=== PATIENT | male | born 1980 | race Caucasian/White ===

== ENCOUNTER 2019-11-03 18:53 | Emergency (ER) | payer OTHER ==
[~2019-11-03] VITALS: Ht 185.4 cm; Wt 158.8 kg
[~2019-11-03 18:53] MED LIST: CITRATE OF MAG296 ML PO; NOHOMEMEDICATIONS; NORCO 5-325 TA1 EACH PO; PERCOCET 5-3251 EACH PO; TRAMADOL 50 MG50 MG PO; VISTARIL 25 MG25 M1 PO
[2019-11-03] MEDS ORDERED: KAPSPARGO SPRIN25 MG PO (19:00)
[2019-11-03] MEDS ORDERED: GLYBURIDE 5 MG T5 M1 PO (19:00)
[2019-11-03] MEDS ORDERED: OXYCODONE HCL E10 MG PO (19:01)
[2019-11-03] MEDS ORDERED: DEPRESSION (19:02)
[2019-11-03 19:20] LABS: ABSOLUTE BASOPHILS 0.1 thou/uL (0.0-0.2); ABSOLUTE EOSINOPHILS 0.3 thou/uL (0.0-0.7); ABSOLUTE LYMPHOCYTES 3.3 thou/uL (0.8-5.3); ABSOLUTE MONOCYTES 0.7 thou/uL (0.0-1.2); ABSOLUTE NEUTROPHILS 6.7 thou/uL (1.6-8.1); EOSINOPHILS 2.5 %; HEMATOCRIT 40.8 % (42.0-52.0); HEMOGLOBIN 13.7 gm/dL (14.0-18.0); LYMPHOCYTES 29.8 %; MCH 29.1 pg (26.0-34.0); MCHC 33.7 g/dL (28.0-37.0); MCV 86.6 fL (80.0-100.0); MONOCYTES 6.3 %; MPV 9.2 fl. (7.2-11.1); NUCLEATED RBCS 0 /100WBC; PLATELET COUNT* 265 thou/uL (150-400); POLYS 60.4 %; RBC 4.71 mil/uL (4.50-6.00); RDW-CV 14.3 % (10.5-14.5)
[2019-11-03 19:28] LABS: CALCIUM 8.5 mg/dL (8.5-10.1); CREATININE 0.9 mg/dL (0.6-1.3); POTASSIUM 4.1 mmol/L (3.5-5.1)
[2019-11-03 19:31] LABS: APTT 25.4 Seconds (25.0-31.3); PROTIME 9.9 Seconds (9.20-11.50)
[2019-11-03 19:40] LABS: ALBUMIN 3.3 g/dL (3.4-5.0); CK-MB MASS 0.5 ng/mL (<0.5-3.6); MAGNESIUM 1.6 mg/dL (1.8-2.4); TOTAL BILIRUBIN 0.2 mg/dL (<0.1-1.0); TOTAL PROTEIN 7.5 g/dL (6.4-8.2)
[2019-11-03 23:05] VITALS: BP 126/76
--- NOTE | 2019-11-04 10:52 | EKG ---
[place] [address] ELECTROCARDIOGRAM REPORT Name: LUAN NANCE Room: [facility]#: [id number] Admission: 11/03/19 Attend Phys: Discharge: 11/03/19 Date of : 78 Date of Service: 11/03/191848 Report #: [id number] THIS REPORT FOR: //name// [facility] ED Test Date: 2019-11-03 Test Time: 18:49:53 Pat Name: LUAN NANCE Department: Room: Gender: E Commerce Director: : 1980 Requested By: Marek Norris Order Number: [id number] MD: Juan Jose Wu Measurements Intervals [place] Rate: 68 P: 42 AR: 188 QRS: -17 QRSD: 96 T: 66 QT: 382 QTc: 407 Interpretive Statements Sinus rhythm Borderline left axis deviation Compared to ECG 10/02/2012 17:44:41 Sinus bradycardia no longer present Ventricular premature complex(es) no longer present Electronically Signed On 11-04-2019 10:50:39 CDT by Juan Jose Wu [email or web address] <ELECTRONICALLY SIGNED> By: Juan Jose Wu MD, FAC 11/04/19 1050 1849 1849 Juan Jose Wu MD, [facility] /EPI
== END 2019-11-03 23:07 | disposition home or self-care (01) ==
LOC: M.ERS 18:53
PROVIDERS: Family Medicine
DX: R07.89 Other chest pain (principal); E11.9 Type 2 diabetes mellitus without complications; F31.9 Bipolar disorder, unspecified; Z91.041 Radiographic dye allergy status; Z88.6 Allergy status to analgesic agent; Z88.8 Allergy status to other drugs, medicaments and biological substances

== ENCOUNTER 2019-12-09 06:04 | Observation (INO) | payer OTHER ==
[~2019-12-09] VITALS: Ht 185.4 cm; Wt 177.7 kg
[~2019-12-09 06:04] MED LIST changes: +DEPRESSION; +GLYBURIDE 5 MG T5 M1 PO; +KAPSPARGO SPRIN25 MG PO; +OXYCODONE HCL E10 MG PO
[2019-12-09 06:08] VITALS: BP 172/66
[2019-12-09] MEDS ORDERED: DESYREL150 MG PO (06:14)
[2019-12-09] MEDS ORDERED: WELLBUTRIN 100100 MG (06:15)
[2019-12-09] MEDS ORDERED: LEVEMIR FL100 UNIT/2 SUBQ (06:16)
[2019-12-09 06:52] LABS: ABSOLUTE BASOPHILS 0.1 thou/uL (0.0-0.2); ABSOLUTE EOSINOPHILS 0.2 thou/uL (0.0-0.7); ABSOLUTE LYMPHOCYTES 2.2 thou/uL (0.8-5.3); ABSOLUTE MONOCYTES 0.4 thou/uL (0.0-1.2); ABSOLUTE NEUTROPHILS 5.7 thou/uL (1.6-8.1); BASOPHILS 0.8 %; HEMATOCRIT 35.9 % (42.0-52.0); MCH 29.3 pg (26.0-34.0); MCHC 33.5 g/dL (28.0-37.0); MCV 87.5 fL (80.0-100.0); MONOCYTES 4.6 %; MPV 8.5 fl. (7.2-11.1); NUCLEATED RBCS 0 /100WBC; PLATELET COUNT* 225 thou/uL (150-400); POLYS 66.6 %; RDW-CV 14.8 % (10.5-14.5); WBC 8.5 thou/uL (4.0-11.0)
[2019-12-09 07:08] LABS: CALCIUM 8.1 mg/dL (8.5-10.1); CREATININE 0.8 mg/dL (0.6-1.3); POTASSIUM 4.2 mmol/L (3.5-5.1)
[2019-12-09 07:18] LABS: MAGNESIUM 1.7 mg/dL (1.8-2.4); TOTAL BILIRUBIN 0.2 mg/dL (<0.1-1.0); TOTAL PROTEIN 7.1 g/dL (6.4-8.2)
[2019-12-09 07:45] LABS: URINE BILIRUBIN NEGATIVE (Negative); URINE BLOOD TRACE (Negative); URINE CLARITY CLEAR; URINE COLOR YELLOW; URINE GLUCOSE-RANDOM 1+ (Negative); URINE KETONES NEGATIVE (Negative); URINE LEUKOCYTES-REFLEX NEGATIVE (Negative); URINE NITRITE-REFLEX NEGATIVE (Negative); URINE PROTEIN NEGATIVE (Negative); URINE SPECIFIC GRAVITY 1.025 (1.005-1.030); URINE UROBILINOGEN 0.2 E.U./dl (0.2-1.0)
[2019-12-09 14:45] VITALS: BP 137/82
--- NOTE | 2019-12-09 16:18 | EKG ---
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
--- NOTE | 2019-12-09 16:57 | 2DMMODE ---
[place] [address] 2 D/M-MODE ECHOCARDIOGRAM Name: LUAN NANCE Room: [address] MAnnikaR.#: [id number] Admission: 12/09/19 Attend Phys: Tong Gutierrez, Discharge: Date of : 78 Date of Service: 12/09/19 1656 Report #: [id number] THIS REPORT FOR: cc: TRIP - No family physician/PCP TRIP - No family physician/PCP Ariel Tipton MD [facility] ~ APPROVED REPORT Study performed: 12/09/2019 15:21:51 EXAM: Comprehensive 2D, Doppler, and color-flow Echocardiogram Patient Location: ER BSA: 2.75 HR: 63 bpm BP: 137/82 mmHg Other Information Study Quality: Technically Difficult Technically limited study due to body habitus. Indications Dyspnea 2D Dimensions IVSd: 9.74 (7-11mm) LVOT Diam: 33.93 (18-24mm) LVDd: 51.15 mm PWd: 11.35 (7-11mm) Ascending Ao: 39.05 (22-36mm) LVDs: 37.87 (25-40mm) Aortic Root: 38.70 mm Volumes Left Atrial Volume (Systole) LA ESV Index: 15.70 mL/m2 Aortic Valve AoV Peak Gerard.: 1.13 m/s AO Peak Gr.: 5.12 mmHg LVOT Max P.24 mmHg AO Mean Gr.: 3.31 mmHg LVOT Mean P.15 mmHg LVOT Max V: 0.75 m/s AO V2 VTI: 27.23 cm LVOT Mean V: 0.49 m/s RAVI (VTI): 6.34 cm2 LVOT V1 VTI: 19.08 [place] [address] 2 D/M-MODE ECHOCARDIOGRAM Name: LUAN NANCE Room: [address]R.#: [id number] Admission: 12/09/19 Attend Phys: Tong Gutierrez, Discharge: Date of : 78 Date of Service: 12/09/19 1656 Report #: [id number] E/A Ratio: 1.66 MV Decel. Time: 207.19 ms MV E Max Gerard.: 0.84 m/s MV PHT: 60.09 ms MVA (PHT): 3.66 cm2 TDI E/Lateral E': 7.00 E/Medial E': 6.46 Medial E' Gerard.: 0.13 m/s Lateral E' Gerard.: 0.12 m/s Pulmonary Valve PV Peak Gerard.: 0.75 m/s PV Peak Gr.: 2.28 mmHg Left Ventricle The left ventricle is normal size. There is normal LV segmental wall motion. There is normal left ventricular wall thickness. Left ventricular systolic function is borderline. LVEF is 50-55%. The left ventricular diastolic function is normal. Right Ventricle The right ventricle is normal size. The right ventricular systolic function is normal. Atria The left atrium size is normal. The right atrium size is normal. Aortic Valve Mild aortic valve sclerosis. No aortic regurgitation is present. There is no aortic valvular stenosis. Mitral Valve The mitral valve is normal in structure. There is no mitral valve regurgitation noted. No evidence of mitral valve stenosis. Tricuspid Valve The tricuspid valve is normal in structure. There is no tricuspid valve regurgitation noted. Pulmonic Valve The pulmonary valve is normal in structure. There is no pulmonic valvular regurgitation. Great Vessels The aortic root [place] [address] 2 D/M-MODE ECHOCARDIOGRAM Name: LUAN NANCE Room: [address]#: [id number] Admission: 12/09/19 Attend Phys: Tong Gutierrez, Discharge: Date of : 78 Date of Service: 12/09/19 1656 Report #: [id number] Pericardium There is no pericardial effusion. <Conclusion> The left ventricle is normal size. There is normal left ventricular wall thickness. Left ventricular systolic function is borderline. LVEF is 50-55%. The left ventricular diastolic function is normal. The right ventricle is normal size. The left atrium size is normal. Mild aortic valve sclerosis. No aortic regurgitation is present. There is no aortic valvular stenosis. The mitral valve is normal in structure. The tricuspid valve is normal in structure. There is no pericardial effusion. There is normal LV segmental wall motion. <ELECTRONICALLY SIGNED> By: Ariel Tipton MD, [facility] 12/09/19 165 [id number] 55 Ariel Tipton MD, FACC /INF
[2019-12-09 18:35] VITALS: BP 155/75
[2019-12-09 19:02] VITALS: BP 151/104
[2019-12-09 20:00] VITALS: BP 133/80
[2019-12-09 23:08] LABS: GLYCOHEMOGLOBIN (HGB A1C) 7.8 % (4.8-5.6)
[2019-12-09 23:39] VITALS: BP 118/65
[2019-12-10 04:26] VITALS: BP 131/77
[2019-12-10 04:52] LABS: ABSOLUTE BASOPHILS 0.1 thou/uL (0.0-0.2); ABSOLUTE EOSINOPHILS 0.2 thou/uL (0.0-0.7); ABSOLUTE LYMPHOCYTES 2.5 thou/uL (0.8-5.3); ABSOLUTE MONOCYTES 0.5 thou/uL (0.0-1.2); ABSOLUTE NEUTROPHILS 6.7 thou/uL (1.6-8.1); BASOPHILS 0.7 %; HEMATOCRIT 34.8 % (42.0-52.0); HEMOGLOBIN 11.8 gm/dL (14.0-18.0); LYMPHOCYTES 25.3 %; MCH 29.6 pg (26.0-34.0); MCHC 33.7 g/dL (28.0-37.0); MCV 87.7 fL (80.0-100.0); MONOCYTES 5.2 %; MPV 8.8 fl. (7.2-11.1); NUCLEATED RBCS 0 /100WBC; PLATELET COUNT* 223 thou/uL (150-400); POLYS 66.8 %; RBC 3.97 mil/uL (4.50-6.00); RDW-CV 14.5 % (10.5-14.5)
[2019-12-10 07:02] LABS: CALCIUM 8.1 mg/dL (8.5-10.1); CREATININE 0.8 mg/dL (0.6-1.3); POTASSIUM 3.6 mmol/L (3.5-5.1)
[2019-12-10 08:00] VITALS: BP 120/58
[2019-12-10 10:42] VITALS: BP 120/58
== END 2019-12-10 11:00 | disposition home or self-care (01) ==
LOC: M.ERS 06:04 → M.TBA-ER 08:31 → M.2W 08:31
PROVIDERS: Emergency Medicine Emergency Medical Services; Personal Emergency Response Attendant; ADMIT Internal Medicine
DX: R00.1 Bradycardia, unspecified (principal); E11.9 Type 2 diabetes mellitus without complications; E66.01 Morbid (severe) obesity due to excess calories; G47.33 Obstructive sleep apnea (adult) (pediatric); F43.10 Post-traumatic stress disorder, unspecified; F20.9 Schizophrenia, unspecified; R06.02 Shortness of breath; G43.909 Migraine, unspecified, not intractable, without status migrainosus

== ENCOUNTER 2020-01-05 22:14 | Emergency (ER) | payer OTHER ==
[~2020-01-05] VITALS: Ht 185.4 cm; Wt 165.6 kg
[~2020-01-05 22:14] MED LIST changes: +DESYREL150 MG PO; +LEVEMIR FL100 UNIT/2 SUBQ; +WELLBUTRIN 100100 MG
[2020-01-05 22:29] VITALS: BP 144/97
[2020-01-05 22:39] LABS: URINE BILIRUBIN NEGATIVE (Negative); URINE BLOOD 1+ (Negative); URINE CLARITY CLEAR; URINE COLOR YELLOW; URINE GLUCOSE-RANDOM 3+ (Negative); URINE KETONES TRACE (Negative); URINE LEUKOCYTES NEGATIVE (Negative); URINE NITRITE NEGATIVE (Negative); URINE PROTEIN TRACE (Negative); URINE SPECIFIC GRAVITY 1.015 (1.005-1.030); URINE UROBILINOGEN 0.2 E.U./dl (0.2-1.0)
[2020-01-05 22:45] LABS: MUCUS None Seen strn/LPF (None Seen); SQUAMOUS 0-3 Few /LPF (0-3)
[2020-01-05 22:46] LABS: URINE RBC 0-2 Rare /HPF (0-2)
[2020-01-05 22:47] LABS: BACTERIA None Seen /HPF (None Seen); CASTS None Seen /LPF (None Seen); CRYSTALS None Seen /LPF (None Seen); URINE WBC 6-15 Few /HPF (0-5)
[2020-01-05 22:56] LABS: HEMATOCRIT 42.9 % (42.0-52.0); HEMOGLOBIN 14.5 gm/dL (14.0-18.0); MCH 29.5 pg (26.0-34.0); MCHC 33.7 g/dL (28.0-37.0); MCV 87.4 fL (80.0-100.0); RBC 4.91 mil/uL (4.50-6.00); RDW-CV 14.1 % (10.5-14.5); WBC 12.2 thou/uL (4.0-11.0)
[2020-01-05 23:04] LABS: CALCIUM 9.2 mg/dL (8.5-10.1); CREATININE 1.1 mg/dL (0.6-1.3); POTASSIUM 4.3 mmol/L (3.5-5.1)
[2020-01-05 23:08] LABS: ALBUMIN 3.5 g/dL (3.4-5.0); TOTAL BILIRUBIN 0.3 mg/dL (<0.1-1.0)
== END 2020-01-05 23:59 | disposition home or self-care (01) ==
LOC: M.ERS 22:14
PROVIDERS: Personal Emergency Response Attendant
DX: E11.65 Type 2 diabetes mellitus with hyperglycemia (principal); R30.0 Dysuria; R36.9 Urethral discharge, unspecified; Z91.041 Radiographic dye allergy status; Z88.6 Allergy status to analgesic agent

== ENCOUNTER 2020-02-15 02:22 | Emergency (ER) | payer OTHER ==
[~2020-02-15] VITALS: Ht 185.4 cm; Wt 161.0 kg
[2020-02-15 02:52] LABS: URINE BILIRUBIN NEGATIVE (Negative); URINE BLOOD 3+ (Negative); URINE CLARITY CLEAR; URINE COLOR STRAW; URINE GLUCOSE-RANDOM 3+ (Negative); URINE KETONES NEGATIVE (Negative); URINE LEUKOCYTES-REFLEX NEGATIVE (Negative); URINE NITRITE-REFLEX NEGATIVE (Negative); URINE PROTEIN NEGATIVE (Negative); URINE UROBILINOGEN 0.2 E.U./dl (0.2-1.0)
[2020-02-15 03:09] LABS: HEMATOCRIT 43.2 % (42.0-52.0); HEMOGLOBIN 14.5 gm/dL (14.0-18.0); MCH 29.6 pg (26.0-34.0); MCHC 33.6 g/dL (28.0-37.0); MCV 87.9 fL (80.0-100.0); MPV 9.8 fl. (7.2-11.1); RBC 4.91 mil/uL (4.50-6.00); RDW-CV 14.2 % (10.5-14.5); WBC 9.5 thou/uL (4.0-11.0)
[2020-02-15 03:21] LABS: CALCIUM 8.7 mg/dL (8.5-10.1); CREATININE 0.9 mg/dL (0.6-1.3); POTASSIUM 3.5 mmol/L (3.5-5.1)
[2020-02-15 03:22] LABS: APTT 23.1 Seconds (25.0-31.3)
[2020-02-15] MEDS ORDERED: LEVEMIR100 UNIT/1 SUBQ (03:53)
[2020-02-15] MEDS ORDERED: GLIPIZIDE 10 MG10 MG PO (03:53)
[2020-02-15 03:55] LABS: SQUAMOUS 0-3 Few /LPF (0-3)
[2020-02-15 03:56] LABS: CASTS None Seen /LPF (None Seen); URINE WBC-REFLEX 0-5 Rare /HPF (0-5)
[2020-02-15 03:57] LABS: BACTERIA-REFLEX 1-9 Few /HPF (None Seen); CRYSTALS None Seen /LPF (None Seen); URINE RBC >20 Many /HPF (0-2)
[2020-02-15 05:11] VITALS: BP 135/100
== END 2020-02-15 05:11 | disposition home or self-care (01) ==
LOC: M.ERS 02:22
PROVIDERS: Emergency Medicine Emergency Medical Services
DX: E11.9 Type 2 diabetes mellitus without complications (principal); R31.9 Hematuria, unspecified; Z88.6 Allergy status to analgesic agent; Z91.041 Radiographic dye allergy status; Z91.040 Latex allergy status; Z79.4 Long term (current) use of insulin